=== PATIENT | female | born 1960 | race Caucasian/White ===

== ENCOUNTER 2024-01-16 22:35 | Emergency (ER) | payer OTHER, SELFPAY ==
[2024-01-16 22:39] VITALS: BP 153/79
--- NOTE | 2024-01-17 00:45 | ED.GENMED ---
History of Present Illness
General
Chief Complaint: Fall
Source: patient and family
Time Seen by Provider: 01/17/24 00:23
History of Present Illness
History of Present Illness:
63-year-old female who was walking her daughter's dog when it pulled her and she fell to the ground. She states she felt a pop. Patient complains of profound shoulder pain. Patient denies head injury. No neck pain. Did fall to her left lower
leg but states she is able to walk and feels like it is just bruised. No neck or back pain.
Past History
Past History
ED Past Medical History: Asthma, Cancer (Breast) and Psychiatric (Depression); Negative CAD
ED Past Surgical History: Appendectomy and Other (Mastectomy)
Social History
Tobacco: Non-smoker
Alcohol: None
Drug: None
Personal:
Living: with family
Employment: Not employed
Family History
Family History: Hypertension
Phy Exam
Physical Exam
Physical Exam:
CONSTITUTIONAL Vital signs reviewed, Patient alert and oriented to person, place and time. Well-appearing
HEAD atraumatic, normocephalic.
EYES eyelids normal to inspection, Extraocular muscles intact, Conjunctiva normal, Sclera normal.
NECK normal range of motion, Trachea midline, no jugular venous distention.
RESP no respiratory distress
BACK No obvious deformities
UPPER EXTREMITY unable to range left shoulder due to pain. Moderate swelling noted and moderate tenderness noted to the proximal humerus. Clavicle nontender. AC joint nontender. Gross motor strength normal. Normal distal pulses noted. Normal
distal cap refill
LOWER EXTREMITY Gross range of motion normal, Gross motor strength normal. Small area of bruising to left lateral lower extremity. Lateral and medial malleolus nontender. Tibia nontender. Knee unaffected. Normal range of motion of bilateral
knees and hips
NEURO Speech normal, No focal motor deficits include, Kylie coma scale 15, Memory normal, Cranial Nerves intact to screening exam.
SKIN Skin warm, dry, and normal in color.
PSYCHIATRIC Patient oriented to person place and time, Normal affect.
Course
Orders/Labs/Results
Orders:
Orders
01/16/24 22:44
Shoulder, Left, Trauma CR [CR Shoulder, Trauma - Left] Urgent
Comment:
Reason For Exam: injury
01/17/24 00:44
Hydrocodone 5/APAP 325 [[place] 5/325] 2 tablet PO NOW STA
01/17/24 00:45
Ondansetron Orally Disint [Zofran Odt (Orally Disintegrating)] 4 mg PO NOW STA
Vital Signs
Initial and Last Documented VS:
Initial Vital Signs
Temp Pulse Resp BP Pulse Ox
97.7 F 72 20 153/79 98
01/16/24 22:39 01/16/24 22:39 01/16/24 22:39 01/16/24 22:39 01/16/24 22:39
Last Documented Vital Signs
Temp Pulse Resp BP Pulse Ox
97.7 F 72 20 153/79 98
01/16/24 22:39 01/16/24 22:39 01/16/24 22:39 01/16/24 22:39 01/16/24 22:39
MDM/Problems Addressed
MDM/Problems Addressed:
Humerus fracture
*Pulse Oximetry
Patient hypoxic: no
*Critical Care Note
Total Time (30-74mins, 75-104mins- exclusive of procedures): Not Applicable
Data Reviewed
Source: patient
Further Testing Considered But Not Given:
Considered head CT with patient states she did not strike her head
Patient Management
Escalation/DeEscalation of care consider admission/obs:
Patient appears well. Humerus fracture noted. Sling applied. Outpatient orthopedic follow-up recommended
ED Attending Note
-
Portions of this chart may have been created with voice recognition software.� Occasional wrong word or��sound alike� substitutions may have occurred due to the inherent limitations of voice recognition software.
Discharge Plan
Departure
Patient Disposition: Home (Routine Discharge)
Date of Disposition: 01/17/24
Time of Disposition: 01:12
Patient with high blood pressure during this ER visit?: Yes
Discharge Problem:
Fracture, humerus
Instructions: Upper Arm Fracture, BLOOD PRESSURE
Prescriptions:
New
hydrocodone-acetaminophen 5-325 mg tablet
2 tab PO Q6H PRN (Reason: Pain) Qty: 15 0RF
No Action
albuterol sulfate 1 PUFF HFA aerosol inhaler
1 puff inhalation R Q4HPRN PRN (Reason: wheezing ) Qty: 1 0RF
aspirin 81 MG tablet,delayed release (DR/EC)
81 mg PO DAILY Qty: 0 0RF
nitroglycerin 0.4 MG tablet, sublingual
0.4 mg sublingual [id number] PRN (Reason: chest pain ) Qty: 25 1RF
atorvastatin 20 MG tablet
20 mg PO HS Qty: 30 3RF
Patient Comments:
NONE X ABOUT 1 WEEK
budesonide-formoterol [Symbicort] 1 PUFF HFA aerosol inhaler
2 puff inhalation R BID
isosorbide mononitrate 60 MG tablet extended release 24 hr
60 mg PO DAILY Qty: 30 2RF
diltiazem HCl 240 MG tablet extended release 24 hr
240 mg PO DAILY Qty: 30 2RF
Referrals:
Dheeraj Barraza MD [Active] -
Activity Restrictions/Additional Instructions:
Please see orthopedics next 2 days for follow-up and reevaluation. Please ice your injury. Please rest. Return immediately for numbness, tingling, worsening pain or any other concerns.
Interventions
Interventions:
*Risk Screen - Suicide Last Done: 01/16/24 22:39
*General Assessment Last Done: 01/16/24 22:39
*Neglect/Abuse Screening Last Done: 01/16/24 22:39
ED- Fall Risk Assessment Last Done: 01/16/24 22:39
*ED COVID-19 Vaccine History Last Done: 01/16/24 22:39
ED-Musculoskeletal Assessment Last Done: 01/17/24 00:51
ED- Neurological Assessment Last Done: 01/17/24 00:51
ED-Skin Assessment Last Done: 01/17/24 00:51
Discharge Date and Time
Print Language: [id number]
[2024-01-17] MEDS: ZOFRAN ODT (ORALLY DISINTEGRATING) 4 MG PO (00:49)
[2024-01-17] MEDS: NORCO 5/325 2 TABLET PO (00:49)
== END 2024-01-17 01:46 | disposition home or self-care (01) ==
LOC: EMR 22:35
PROVIDERS: EMERGENCY PHYSICIAN Emergency Medicine; FAMILY PHYSICIAN Family Medicine
DX: S42.212A Unspecified displaced fracture of surgical neck of left humerus, initial encounter for closed fracture (principal); W18.39XA Other fall on same level, initial encounter; Y93.K1 Activity, walking an animal; J45.909 Unspecified asthma, uncomplicated; Z85.3 Personal history of malignant neoplasm of breast
CPT/HCPCS: 99283; 73030

== ENCOUNTER 2024-01-25 06:27 | Day surgery (SDC) | payer OTHER, SELFPAY ==
[2024-01-25] VITALS (9 sets, daily range): BP systolic 113–145; BP diastolic 60–77; BMI 30.5
[2024-01-25] MEDS: NORMOSOL-R/PLASMALYTE-A 1000 IV (11:51)
[2024-01-25] MEDS: TYLENOL 1000 MG PO (11:51)
== END 2024-01-25 15:29 | disposition home or self-care (01) ==
LOC: SDS 06:27
PROVIDERS: ATTENDING PHYSICIAN Orthopaedic Surgery
PROC: 0PSD04Z Reposition Left Humeral Head with Internal Fixation Device, Open Approach (ICD-10-PCS; 2024-01-25)
DX: S42.292A Other displaced fracture of upper end of left humerus, initial encounter for closed fracture (principal); W18.30XA Fall on same level, unspecified, initial encounter
CPT/HCPCS: 23615; 73060; 76000; C1713